=== PATIENT | male | born 1955 | race Caucasian/White ===

== ENCOUNTER 2023-01-05 16:35 | Emergency (ER) | payer MEDICARE, MEDICAID ==
[~2023-01-05] VITALS: Ht 172 cm; Wt 86.6 kg
--- NOTE | 2023-01-05 17:21 | Diagnostic Imaging Report ---
INDICATION: Knee pain. FINDINGS: Alignment of the knee is appropriate. There is no evidence of an acute fracture. There is no significant knee joint effusion. There is prominent prepatellar soft tissue swelling. There is also chronic ossification at the patellar tendon insertion with overlying soft tissue thickening. There is mild tricompartmental joint space loss with small tricompartment osteophytes. IMPRESSION: 1. Bilateral left knee osteoarthritic changes without findings of malalignment or acute fracture. There is no significant knee joint effusion. 2. 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 Dictated by: Dictated on workstation # [id number]
[2023-01-05] MEDS ORDERED: AMOX1TAB12 PO (17:29)
[2023-01-05] MEDS ORDERED: Tetanus/Diphtheria/Pertussis (Acell) ADULT Vaccine 0.5 ML IM ONE (17:30)
--- NOTE | 2023-01-05 17:30 | ED Lower Extremity ---
General Chief Complaint: Lower Extremity Stated Complaint: FALL - LEFT KNEE PAIN Nursing Triage Note: PT AMB TO [facility] 10 WITH C/O L KNEE PAIN AND POSS INFECTION AFTER A FALL ABOUT A MONTH AND A HALF AGO History of Present Illness Date Seen by Provider: Jan 05, 2023 Time Seen by Provider: 17:00 Initial Comments 67-year-old male presents for left knee pain. He reports approximately 1 month ago he fell and landed on a sharp rock, small abrasion was noted. He was not healing and approximately 7 days ago he was kneeling for work on his car, possibly exposing the wound to anti-freeze and motor oil. He is diabetic but well controlled. Denies any previous injuries to his left knee. He has been cleaning it with peroxide and using triple antibiotic ointment. He reports occasional clear to yellow drainage from the wound site. He reports his last tetanus shot was greater than 5 years ago. No other complaints. Pain/Injury Location: left knee Method of Injury: direct blow Allergies and Home Medications Allergies Coded Allergies: No Known Drug Allergies (Unverified , 01/05/23) Patient Home Medication List Home Medication List Reviewed: Yes Amoxicillin/Potassium Clav (Amox Tr-K Clv 875-125 mg Tab) 875 Mg-125 Mg Tablet, 1 EACH PO BID Prescribed by: PAMELA CHUA on 01/05/23 1827 Review of Systems Constitutional: no symptoms reported, see HPI Musculoskeletal: see HPI, joint pain (Left knee anterior); No joint swelling All Other Systems Reviewed Negative Unless Noted: Yes Past Aybirgf-Vieivl-Lpzmrj Hx Patient Social History Tobacco Use?: Yes Tobacco type used: Cigarettes Substance use?: No Alcohol Use?: Yes Alcohol type: Beer Alcohol Frequency: Once in a while Pt feels they are or have been: No Past Medical History Surgery/Hospitalization HX: DM, HTN, NEUROPATHY COLON RESECTION, R ANKLE SURGERY, R HAND SURGERY, Family Medical History Reviewed Nursing Family Hx Physical Exam Vital Signs Vital Signs - First Documented 01/05/23 17:00 Temp 36.4 Pulse 68 Resp 18 B/P (MAP) 183/93 (123) Pulse Ox 98 Capillary Refill : Height, Weight, BMI Height: '" Weight: lbs. oz. kg; 29.00 BMI Method: General Appearance: WD/WN, no apparent distress Cardiovascular: normal peripheral pulses, regular rate, rhythm Respiratory: chest non-tender, lungs clear, normal breath sounds Knees: left knee normal range of motion, left knee bone tenderness, left knee pain, left knee soft tissue tenderness (Anterior), left knee other (Anterior knee with trace erythema and warmth, small incision from fall on rock. No active drainage.) Neurologic/Psychiatric: no motor/sensory deficits, alert, normal mood/affect, oriented x 3 Skin: normal color, warm/dry, other (mild pre patella erythema, no joint effusion to left knee. Culture obtained from incision site. ) Progress/Results/Core Measures Results/Orders My Orders Orders - PAMELA CHUA Knee, Left, 3 Views (01/05/23 16:36) Dipht/Pertuss(Acell)/Tet Adult (Dipht/Pe (01/05/23 17:30) Medications Given in ED Current Medications Medications Dose Ordered Sig/Pilar Route Start Time Stop Time Status Last Admin Dose Admin Diphtheria/ Tetanus/Acell Pertussis 0.5 ml ONCE ONCE IM 01/05/23 17:30 01/05/23 17:31 DC 01/05/23 17:38 0.5 ML Vital Signs/I&O 01/05/23 01/05/23 17:00 17:50 Temp 36.4 36.4 Pulse 68 68 Resp 18 18 B/P (MAP) 183/93 (123) 183/93 Pulse Ox 98 98 Blood Pressure Mean: 123 Diagnostic Imaging Diagonstic Imaging: Xray Plain Films/CT/US/NM/MRI: knee Comments NAME: FERNIE VELAZQUEZ [facility] REC#: [id number] PT STATUS: REG ER : 1955 PHYSICIAN: PAMELA CHUA ADMIT DATE: 01/05/23/ER Draft Date of Exam:01/05/23 KNEE, LEFT, 3 VIEWS INDICATION: Knee pain. FINDINGS: Alignment of the knee is appropriate. There is no evidence of an acute fracture. There is no significant knee joint effusion. There is prominent prepatellar soft tissue swelling. There is also chronic ossification at the patellar tendon insertion with overlying soft tissue thickening. There is mild tricompartmental joint space loss with small tricompartment osteophytes. IMPRESSION: 1. Bilateral left knee osteoarthritic changes without findings of malalignment or acute fracture. There is no significant knee joint effusion. 2. 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 Dictated on workstation # [id number] Dict: 01/05/23 1718 Trans: 01/05/23 1720 [id number] Interpreted by: JOSE CUEVAS MD Electronically signed by: Reviewed: Reviewed by Me Departure Impression Primary Impression: Cellulitis of right knee Disposition: HOME, SELF-CARE Condition: Improved Departure-Patient Inst. Decision time for Depature: 17:25 Referrals: [facility] (PCP/Family) Primary Care Physician Patient Instructions: Cellulitis (Skin Infection), Adult (DC) Add. Discharge Instructions: Continue to clean wound with peroxide and apply triple antibiotic ointment 3 times daily. Take antibiotics as prescribed. Follow-up with your primary care provider early next week if symptoms or not improving or worsen they can refer you to orthopedics within the [facility]. Alternate between Tylenol 650 mg and ibuprofen 600 mg every 4 hours for pain. Return to the emergency department for new, urgent healthcare needs. All discharge instructions reviewed with patient and/or family. Voiced understanding. Scripts Amoxicillin/Potassium Clav (Amox Tr-K Clv 875-125 mg Tab) 875 Mg-125 Mg Tablet 1 EACH PO BID, #20 TAB 0 Refills Prov: PAMELA CHUA 01/05/23 PAMELA CHUA Jan 05, 2023 17:30
[2023-01-05 17:50] VITALS: BP 183/93
== END 2023-01-05 17:49 | disposition home or self-care (01) ==
LOC: EDUNIT# 16:35 → ER 16:36
DX: L03.116 Cellulitis of left lower limb (principal); F17.210 Nicotine dependence, cigarettes, uncomplicated
CPT/HCPCS: 73562; 87070; 87077; 87186; 87205; 90715